=== PATIENT | male | born 1965 | race Caucasian/White ===

== ENCOUNTER 2017-03-24 13:28 | Emergency (ER) | payer OTHER ==
[~2017-03-24] VITALS: Ht 188 cm; Wt 133.5 kg
[~2017-03-24 13:28] MED LIST: ALBU0.086 INH; CYCL-36 PO; NAPR-576 PO; OMEP20TA PO; SIMV20TA PO; UNKNOWN ANXIETY MED PO; VENTAER INH
[2017-03-24 13:31] VITALS: BP 158/91; PULSE 86; RESP 16; TEMP 98.5; O2SAT 98
[2017-03-24] MEDS ORDERED: BACT800T5 PO (13:45)
[2017-03-24] MEDS ORDERED: SIMV20TA PO (13:45)
[2017-03-24] MEDS ORDERED: CLIN1CAP6 PO (13:59)
[2017-03-24] MEDS ORDERED: CLINDAMYCIN PHOS 900 MG/6 ML VIAL IM ONE (14:00)
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
[2017-03-24] MEDS ORDERED: CLINDAMYCIN PHOS 600 MG/4 ML VIAL IM ONE (14:15)
== END 2017-03-24 15:00 | disposition home or self-care (01) ==
LOC: PHEFT 13:28
DX: L02.412 Cutaneous abscess of left axilla (principal); I10 Essential (primary) hypertension; F43.10 Post-traumatic stress disorder, unspecified; J44.9 Chronic obstructive pulmonary disease, unspecified; E78.00 Pure hypercholesterolemia, unspecified; I25.2 Old myocardial infarction
CPT/HCPCS: 96372

== ENCOUNTER 2017-04-09 15:17 | Emergency (ER) | payer OTHER ==
[~2017-04-09] VITALS: Ht 177.8 cm; Wt 133.1 kg
[~2017-04-09 15:17] MED LIST changes: -ALBU0.086 INH; +BACT800T5 PO; +CLIN1CAP6 PO; -CYCL-36 PO; -NAPR-576 PO; -OMEP20TA PO; -UNKNOWN ANXIETY MED PO; -VENTAER INH
[2017-04-09] MEDS ORDERED: DIPHTH/TETANUS/ACEL PERTUSSIS (BOOSTER) 0.5 ML VIAL/PFS IM ONE (15:30)
[2017-04-09] MEDS ORDERED: LIDOCAINE HCL 1% 50 ML VIAL INFIL ONE (15:30)
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
[2017-04-09 15:32] VITALS: BP 151/81; PULSE 103; RESP 20; TEMP 97.5; O2SAT 98
--- NOTE | 2017-04-09 16:12 | RADRPT ---
EXAM DATE/TIME: 04/09/2017 15:37 [facility] COMPARISON: No previous studies available for comparison. INDICATIONS : Fracture. Trauma to foot from chainsaw. MEDICAL HISTORY : None. SURGICAL HISTORY : None. ENCOUNTER: Initial ACUITY: 1 day PAIN SCORE: 5/10 LOCATION: Right foot FINDINGS: No definite fractures, or dislocations are identified. No definite lytic or sclerotic lesion is seen . Soft tissue injury is present adjacent to the fifth metatarsophalangeal joint. There is no evidence for a radiopaque foreign body for technique. Calcaneal spurs are present at the attachment site of t he plantar aponeurosis and Achilles tendon. CONCLUSION: Soft tissue injury no definite fracture. Kathryn Castro MD on April 09, 2017 at 16:09 Board Certified Radiologist. This report was verified electronically.
[2017-04-09] MEDS ORDERED: BACT800T5 PO (16:28)
[2017-04-09] MEDS ORDERED: SULFAMETHOXAZOLE-TRIMETHOPRIM DS 800-160 MG TAB PO ONE (16:30)
--- NOTE | 2017-04-09 16:43 | PD ---
Physical Exam Time Seen by Provider: 16:15 Narrative I was asked by Dr. Greene to perform laceration repair on patient's right foot. Please see Dr. Greene's note for full H&P on patient. LACERATION LOCATION: Right foot lateral aspect LENGTH: [2.5 cm] NUMBER OF STITCHES/DONNA: 6 REPAIR: The area of the laceration was prepped with Betadine and sterilely draped. The laceration was infiltrated with 1% lidocaine. The wound was copiously irrigated and explored without evidence of foreign body, tendon injury or neurovascular injury. The wound was closed using 3-0 proline. This was a single layer repair. A sterile dressing was applied. The patient was advised to keep the dressing clean and dry. Patient tolerated the procedure well. Data Data Last Documented VS Vital Signs Date Time Temp Pulse Resp B/P Pulse Ox O2 Delivery O2 Flow Rate FiO2 04/09/17 15:32 97.5 103 20 151/81 98 Orders Lidocaine 1% Inj (50 Ml) (Xylocaine 1% I (04/09/17 15:30) [id number] (Booster) Inj (Boostrix (04/09/17 15:30) Foot, Complete ([id number]) (04/09/17 ) Sulfamet-Trimeth Ds 800-160 Mg (Bactrim (04/09/17 16:30) MDM Supervised Visit with MARLON: Yes Diagnosis Primary Impression: Laceration of foot Patient Instructions: General Instructions, Laceration (DC) Additional Instruction: Return to ED in 10-14 days for suture removal. Scripts Sulfamethoxazole-Trimethoprim (Bactrim DS)800-160 Mg Tab1 Tab PO BID 7 Days Ref 0 Prov:Javier Greene MD 04/09/17 Disposition: 01 DISCHARGE HOME Condition: Stable Minoo Giles Apr 09, 2017 16:43
== END 2017-04-09 17:11 | disposition home or self-care (01) ==
LOC: PHED 15:17
DX: S91.311A Laceration without foreign body, right foot, initial encounter (principal); W29.3XXA Contact with powered garden and outdoor hand tools and machinery, initial encounter; Y93.89 Activity, other specified; Y92.9 Unspecified place or not applicable; J44.9 Chronic obstructive pulmonary disease, unspecified; I10 Essential (primary) hypertension; F43.10 Post-traumatic stress disorder, unspecified; I25.2 Old myocardial infarction; Z23 Encounter for immunization
CPT/HCPCS: 12001; 73630; 90471; 90715

== ENCOUNTER 2017-04-12 16:17 | Emergency (ER) | payer OTHER ==
[~2017-04-12] VITALS: Ht 188 cm; Wt 129.6 kg
[~2017-04-12 16:17] MED LIST changes: -CLIN1CAP6 PO
[2017-04-12 16:34] VITALS: BP 148/74; PULSE 88; RESP 15; TEMP 98.7; O2SAT 97
[2017-04-12] MEDS ORDERED: CLINDAMYCIN INJ 900 MG in SODIUM CHLORIDE 0.9% INJ 100 ML IV STA (17:08)
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
[2017-04-12 17:41] VITALS: O2SAT 97
[2017-04-12 17:43] LABS: CHLORIDE 103 MEQ/L (98-107); SODIUM (NA) 135 MEQ/L (136-145)
[2017-04-12 17:44] LABS: POTASSIUM 4.5 MEQ/L (3.5-5.1)
[2017-04-12 17:46] LABS: AUTOMATED NEUTROPHIL # 6.5 TH/MM3 (1.8-7.7); BASOPHIL # 0.1 TH/MM3 (0-0.2); BASOPHIL % 0.8 % (0.0-2.0); EOSINOPHIL # 0.6 TH/MM3 (0-0.4); EOSINOPHIL % 5.6 % (0.0-4.0); HEMATOCRIT 43.7 % (39.0-51.0); LYMPH % 20.4 % (9.0-44.0); LYMPHOCYTE # 2.1 TH/MM3 (1.0-4.8); MEAN CELL VOLUME 89.7 FL (80.0-100.0); MEAN CORPUSCULAR HEMOGLOBIN 29.8 PG (27.0-34.0); MEAN CORPUSCULAR HGB CONC 33.3 % (32.0-36.0); MONO % 7.5 % (0.0-8.0); NEUT % 65.7 % (16.0-70.0); PLATELET COUNT 258 TH/MM3 (150-450); RED BLOOD COUNT 4.88 MIL/MM3 (4.50-5.90); RED CELL DISTRIBUTION WIDTH 13.1 % (11.6-17.2); WHITE BLOOD COUNT 10.1 TH/MM3 (4.0-11.0)
[2017-04-12 17:47] LABS: ANION GAP 7 MEQ/L (5-15); BLOOD UREA NITROGEN 15 MG/DL (7-18)
[2017-04-12 17:50] LABS: ALT (GPT) 31 U/L (12-78); AST (GOT) 34 U/L (15-37); GLOMERULAR FILTRATION RATE 79 ML/MIN (>89)
--- NOTE | 2017-04-12 17:50 | RADRPT ---
EXAM DATE/TIME: 04/12/2017 17:34 [facility] COMPARISON: No previous studies available for comparison. INDICATIONS : Right foot pain. Patient states he injured his foot with a chainsaw four days ago and his stitches conley ve gotten infected. MEDICAL HISTORY : None. SURGICAL HISTORY : None. ENCOUNTER: Initial ACUITY: 4 - 6 days PAIN SCORE: 6/10 LOCATION: Right foot. FINDINGS: Two view examination of the right foot demonstrates no soft tissue swelling, dislocation, or fracture . The calcaneus is intact. Bony mineralization is normal. Heel spur formation. Mild spurring of the dorsal bones. No fractures are seen. CONCLUSION: No acute disease. Trino Dolan MD on April 12, 2017 at 17:48 Board Certified Radiologist. This report was verified electronically.
[2017-04-12 17:52] LABS: TOTAL BILIRUBIN ADULT 0.5 MG/DL (0.2-1.0)
[2017-04-12 17:53] LABS: ALKALINE PHOSPHATASE 82 U/L (45-117)
[2017-04-12 17:55] LABS: HEMO FLAGS AUTO DIFF
[2017-04-12] MEDS ORDERED: CLIN1CAP6 PO (18:06)
[2017-04-12 18:48] VITALS: BP 146/81; PULSE 65; RESP 16; O2SAT 99
[2017-04-12 18:51] LABS: PLATELET ESTIMATE SMEAR NORMAL (NORMAL); PLATELET MORPHOLOGY NORMAL (NORMAL); SCAN/DIFF AUTO DIFF CONFIRMED
== END 2017-04-12 19:02 | disposition home or self-care (01) ==
LOC: PHED 16:17
DX: L03.115 Cellulitis of right lower limb (principal)
CPT/HCPCS: 73620; 80053; 83605; 85025; 87040; 96365